=== PATIENT | female | born 1970 ===

== ENCOUNTER 2017-05-29 17:14 | Emergency (ER) | payer BC ==
[2017-05-29] MEDS ORDERED: Sodium Chloride 0.9% 10 ML Syringe FLUSH PRN (17:50)
[2017-05-29] MEDS ORDERED: cloNIDine 0.1 MG Tab PO ONE (17:52)
--- NOTE | 2017-05-29 18:00 | EDM.PDOC ---
ED HPI GENERAL MEDICAL PROBLEM - General Chief Complaint: Cardiovascular Problem Stated Complaint: HIGH BLOOD PRESSURE Time Seen by Provider: 05/29/17 17:35 Source of Information: Reports: Patient History Limitations: Reports: No Limitations - History of Present Illness INITIAL COMMENTS - FREE TEXT/NARRATIVE: Patient is a 47-year-old female with history of hypothyroidism who presents to the ED with concerns of elevated blood pressure. She was at the eye doctor today and when the blood pressure was checked and was quite elevated. She was instructed to come to the ED for treatment and evaluation. Upon admission to the ED patient's blood pressure is quite elevated as well. Normally the blood pressure runs 140/80. Currently the blood pressure is 190/97. Nursing staff to the blood pressures manually and in both arms. She has no symptoms at this time. There's been no change in her diet or medication dosage. She is on no stimulants. Denies smoking history. Caffeine use minimal. 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: - Past Surgical History HEENT Surgical History: Reports: None, Oral Surgery, Other (See Below) Other HEENT Surgeries/Procedures: wisdom teeth extracted GI Surgical History: Reports: Cholecystectomy Social & Family History - Tobacco Use Smoking Status *Q: Never Smoker Second Hand Smoke Exposure: No - Caffeine Use Caffeine Use: Reports: None - Recreational Drug Use Recreational Drug Use: No ED ROS GENERAL - Review of Systems Review Of Systems: See Below Constitutional: Reports: No Symptoms HEENT: Reports: No Symptoms Respiratory: Reports: No Symptoms Cardiovascular: Reports: No Symptoms GI/Abdominal: Reports: No Symptoms : Reports: No Symptoms Musculoskeletal: Reports: No Symptoms Neurological: Reports: No Symptoms Psychiatric: Reports: No Symptoms ED EXAM, GENERAL - Physical Exam Exam: See Below Exam Limited By: No Limitations General Appearance: Alert, WD/WN, No Apparent Distress Ears: Hearing Grossly Normal Nose: Normal Inspection Throat/Mouth: Normal Voice, No Airway Compromise Neck: Normal Inspection, Supple. No: Carotid Bruit Respiratory/Chest: No Respiratory Distress, Lungs Clear, Normal Breath Sounds, No Accessory Muscle Use, Chest Non-Tender Cardiovascular: Normal Peripheral Pulses, Regular Rate, Rhythm, No Murmur Peripheral Pulses: 4+: Radial (L), Radial (R) GI/Abdominal: Normal Bowel Sounds, Soft, Non-Tender, No Organomegaly, No Distention Extremities: Normal Inspection, Non-Tender, No Pedal Edema, Normal Capillary Refill Neurological: Alert, Oriented, CN II-XII Intact, Normal Cognition, No Motor/ Sensory Deficits Psychiatric: Normal Affect, Normal Mood Skin Exam: Warm, Dry, Intact, Normal Color Course - Vital Signs Last Recorded V/S: Last Vital Signs Temp 98.7 F 05/29/17 17:21 Pulse 94 05/29/17 17:21 Resp 18 05/29/17 17:21 BP 162/92 H 05/29/17 18:19 Pulse Ox 100 05/29/17 17:21 - Orders/Labs/Meds Orders: Active Orders 24 hr Category Date Time Status Peripheral IV Care [RC] . DIRECTED Care 05/29/17 17:51 Active Chest 1V Frontal [CR] Stat Exams 05/29/17 17:50 Taken Peripheral IV Insertion Adult [OM.PC] Routine Oth 05/29/17 17:50 Ordered Labs: Laboratory Tests 05/29/17 05/29/17 05/29/17 Range/Units 18:13 18:13 18:23 WBC 8.49 (3.98-10.04) K/mm3 RBC 4.01 (3.98-5.22) M/mm3 Hgb 11.7 (11.2-15.7) gm/L Hct 35.6 (34.1-44.9) % MCV 88.8 (79.4-94.8) fl MCH 29.2 (25.6-32.2) pg MCHC 32.9 (32.2-35.5) g/dl RDW Std Deviation 41.7 (36.4-46.3) fL Plt Count 209 (182-369) K/mm3 MPV 11.1 (9.4-12.3) fl Neutrophils % (Manual) 49 (40-60) % Band Neutrophils % 0 (0-10) % Lymphocytes % (Manual) 44 H (20-40) % Atypical Lymphs % 0 % Monocytes % (Manual) 7 (2-10) % Eosinophils % (Manual) 0 L (0.7-5.8) % Basophils % (Manual) 0 L (0.1-1.2) Platelet Estimate Adequate RBC Morph Comment Normal Sodium 141 (136-145) mEq/L Potassium 3.6 (3.5-5.1) mEq/L Chloride 105 (98-107) mEq/L Carbon Dioxide 27 (21-32) mEq/L Anion Gap 12.6 (5-15) BUN 10 (7-18) mg/dL Creatinine 0.9 (0.55-1.02) mg/dL Est Cr Clr Drug Dosing 85.36 mL/min Estimated GFR (MDRD) > 60 (>60) mL/min BUN/Creatinine Ratio 11.1 L (14-18) Glucose 121 H (74-106) mg/dL Calcium 8.9 (8.5-10.1) mg/dL Total Bilirubin 0.3 (0.2-1.0) mg/dL AST 20 (15-37) U/L ALT 17 (14-59) U/L Alkaline Phosphatase 57 (46-116) U/L Troponin I < 0.017 (0.00-0.056) ng/mL Total Protein 7.8 (6.4-8.2) g/dl Albumin 3.8 (3.4-5.0) g/dl Globulin 4.0 gm/dL Albumin/Globulin Ratio 1.0 (1-2) TSH 3rd Generation 2.968 (0.358-3.74) uIU/mL Urine Color Light yellow (Yellow) Urine Appearance Clear (Clear) Urine pH 6.5 (5.0-8.0) Ur Specific [place] 1.015 (1.005-1.030) Urine Protein Negative (Negative) Urine Glucose (UA) Negative (Negative) Urine Ketones Negative (Negative) Urine Occult Blood Trace-lysed H (Negative) Urine Nitrite Negative (Negative) Urine Bilirubin Negative (Negative) Urine Urobilinogen 0.2 (0.2-1.0) Ur Leukocyte Esterase Trace H (Negative) Urine RBC 0-5 (0-5) /hpf Urine WBC 0-5 (0-5) /hpf Ur Epithelial Cells 0-5 (0-5) /hpf Urine Bacteria Occasional (FEW) /hpf Urine Mucus Not seen (FEW) /hpf Meds: Medications Discontinued Medications Generic Name Dose Route Start Last Admin Trade Name Luciana PRN Reason Stop Dose Admin Clonidine HCl 0.1 mg 05/29/17 17:52 05/29/17 18:19 Catapres PO 05/29/17 17:53 0.1 mg ONETIME ONE Administration Hydrochlorothiazide 25 mg 05/29/17 19:24 05/29/17 19:41 Hydrochlorothiazide PO 05/29/17 19:25 Not Given ONETIME ONE Sodium Chloride 10 ml 05/29/17 17:50 05/29/17 18:15 Saline Flush FLUSH 10 ml ASDIRECTED PRN Administration Keep Vein Open - Re-Assessments/Exams Free Text/Narrative Re-Assessment/Exam: Labs and studies include: CBC, chem 14, troponin, TSH, UA, chest x-ray one view , and EKG. Ordered peripheral IV and clonidine 0.1mg PO. Labs reviewed: CBC and chemistry panel were essentially normal. Troponin less than 0.017. TSH within normal limits. UA positive for trace lysed blood. Leukocyte esterase trace. No other concerning findings. Chest x-ray did not reveal any concerning findings. Final interpretation is pending. Reviewed with Dr. Moreno. BP has decreased to 147/88. She has no complaints this time. She is ready be discharged home. I discussed starting her on a antihypertensive medication to which she agrees. I elected to start the patient hydrochlorothiazide. First dose of 12.5 mg by mouth tomorrow morning. She will see her PCP on follow-up on this coming week for reevaluation to ensure blood pressure is trending downward. I suspect an increase in the head of her thus will be required and/or possible addition of another medication. 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 Bring the blood pressure machine and log book with you to your appointment with PCP this following week for reevaluation. Take hydrochlorothiazide 12.5 mg every day. This may be increased to 25 mg if receiving unsatisfactory results. Please drink plenty of fluids. Refrain from excessive salt intake and caffeinated beverages. Return to theED if you develop any new or worsening symptoms. - My Orders Last 24 Hours: My Active Orders 05/29/17 17:50 Chest 1V Frontal [CR] Stat Peripheral IV Insertion Adult [OM.PC] Routine 05/29/17 17:51 Peripheral IV Care [RC] . DIRECTED - Assessment/Plan Last 24 Hours: My Active Orders 05/29/17 17:50 Chest 1V Frontal [CR] Stat Peripheral IV Insertion Adult [OM.PC] Routine 05/29/17 17:51 Peripheral IV Care [RC] . DIRECTED
[2017-05-29] MEDS ORDERED: Hydrochlorothiazide 25 MG Tab PO ONE (19:24)
--- NOTE | 2017-05-30 06:19 | CR ---
Chest: Portable view of the chest was obtained. Comparison: No prior study. Heart size and mediastinum are normal. Lungs are clear. Bony structures are grossly intact. Impression: 1. Nothing acute is seen on portable chest x-ray. Diagnostic code #1
== END 2017-05-29 19:40 | disposition home or self-care (01) ==
LOC: JD.ED 17:14
DX: I10 Essential (primary) hypertension (principal); E03.9 Hypothyroidism, unspecified
CPT/HCPCS: 36415; 71045; 80053; 81001; 84443; 84484; 85025; 99284; A9270; J7050; 99283